=== PATIENT | male | born 1940 ===

== ENCOUNTER 2019-11-03 09:56 | Outpatient (CLI) | payer OTHER | END 2019-11-03 23:59 | disposition home or self-care (01) | LOC: 64 CT 09:56 | PROVIDERS: ATTEND Internal Medicine Critical Care Medicine | DX: J95.821 Acute postprocedural respiratory failure (principal); J98.11 Atelectasis; J90 Pleural effusion, not elsewhere classified; M47.816 Spondylosis without myelopathy or radiculopathy, lumbar region | CPT/HCPCS: 74150 ==